=== PATIENT | male | born 1955 | race Caucasian/White ===

== ENCOUNTER 2017-09-03 09:41 | Emergency (ER) | payer BC, OTHER ==
[2017-09-03 10:20] VITALS: BP 134/65
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
--- NOTE | 2017-09-03 12:39 | RAD ---
INDICATION: Cough. Wheeze. COMPARISON: None TECHNIQUE: PA and lateral dual-energy views were obtained. FINDINGS: Bones/Soft Tissues: There are no acute bony findings. Cardiomediastinal: The cardiomediastinal silhouette is normal. Lungs: There are no infiltrates. Pleura: There are no pleural effusions. Other: None IMPRESSION: NO ACTIVE DISEASE.
== END 2017-09-03 13:05 | disposition home or self-care (01) ==
LOC: UCCORT 09:41
DX: J32.9 Chronic sinusitis, unspecified (principal)
CPT/HCPCS: 71020; 99212; G0463

== ENCOUNTER 2017-09-12 07:18 | Emergency (ER) | payer BC ==
[2017-09-12 07:42] VITALS: BP 137/76
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
== END 2017-09-12 08:27 | disposition home or self-care (01) ==
LOC: UCCORT 07:18
DX: J11.1 Influenza due to unidentified influenza virus with other respiratory manifestations (principal)
CPT/HCPCS: 87502; 99212; G0463